=== PATIENT | female | born 1975 | race African-American/Black ===

== ENCOUNTER 2019-01-15 00:10 | Emergency (ER) | payer SELFPAY ==
[~2019-01-15] VITALS: Ht 162.6 cm; Wt 104.3 kg
[2019-01-15] MEDS ORDERED: CLONIDINE HCL 0.1 MG TAB ONE ×2 (00:36→01:03)
[2019-01-15] MEDS ORDERED: PENICILLIN G BENZATHINE LA 1.2 MU TBX IM STA (00:49)
[2019-01-15] MEDS ORDERED: PENICILLIN G BENZATHINE LA 1.2 MU TBX ONE (00:50)
[2019-01-15] MEDS ORDERED: CLONIDINE HCL 0.1 MG TAB PO ONE ×2 (01:00)
[2019-01-15 01:41] VITALS: BP 184/103
== END 2019-01-15 01:31 | disposition home or self-care (01) ==
LOC: FSED 00:10
DX: J02.0 Streptococcal pharyngitis (principal); H66.001 Acute suppurative otitis media without spontaneous rupture of ear drum, right ear; I10 Essential (primary) hypertension
CPT/HCPCS: 99283; J0561

== ENCOUNTER 2020-03-16 22:24 | Emergency (ER) | payer OTHER ==
[~2020-03-16] VITALS: Ht 162.6 cm; Wt 110.2 kg
[2020-03-16] MEDS ORDERED: KETOROLAC TROMETHAMINE 30 MG/ML VIAL IV STA (23:10)
[2020-03-16] MEDS ORDERED: KETOROLAC TROMETHAMINE 30 MG/ML VIAL ONE (23:37)
[2020-03-16] MEDS ORDERED: CYCLOBENZAPRINE5 MG PO (23:52)
[2020-03-17] MEDS ORDERED: BENTYL10 MG/1 ML IV (00:46)
[2020-03-17] MEDS ORDERED: PREVACID30 MG PO (00:46)
== END 2020-03-17 01:00 | disposition home or self-care (01) ==
LOC: FSED 23:10
DX: R10.13 Epigastric pain (principal); I10 Essential (primary) hypertension
CPT/HCPCS: 74176; 80053; 81003; 81025; 85025; 99284; J1885